=== PATIENT | female | born 1960 | race Caucasian/White ===

== ENCOUNTER → 2023-04-28 13:08 | Outpatient (REF) | payer MEDICARE, OTHER, SELFPAY | LOC: HWWDC 13:08 | PROVIDERS: ATTENDING PHYSICIAN Obstetrics & Gynecology Gynecology; FAMILY PHYSICIAN Internal Medicine | DX: Z12.31 Encounter for screening mammogram for malignant neoplasm of breast (principal) | CPT/HCPCS: 77063; 77067 ==

== ENCOUNTER 2023-06-09 06:31 | Day surgery (SDC) | payer MEDICARE, OTHER, SELFPAY ==
--- NOTE | 2023-05-31 10:49 | CM ---
Patient is scheduled for an elective R TKR on 06/09/23- she is a same day patient. Spoke with patient prior to surgery. Introduced role of Orthopedic Navigator. Patient reports that she lives alone in a two story home. There are four steps to enter
and a flight of steps to the second floor. She currently functions independently. She has a cane, commode, cpap and rolling walker. She has never had VN services. PCP is Kelly Brian.
Discussed orthopedic program and post surgical plans. Reviewed that she will have VN services initially (medicare.gov website and ratings reviewed) and will then start outpatient PT. Patient selects [facility] (face sheet faxed to [facility] to facilitate
confirmation of benefits) for her home care needs but doesn't think she will have transportation for outpatient PT and will need VN services beyond the initial few days.
Patient is in agreement with plan and states that she will be going to her sister's home after surgery.
Patient will complete online education.
Plan: Orthopedic Navigator will remain available to assist with the care of patient and will reassess discharge needs after surgery.
[2023-06-03 08:31] VITALS: BMI 38.0
[2023-06-03 08:56] LABS: Hematocrit 42.4 % (37.0-47.0); Hemoglobin 13.9 g/dL (12.0-16.0); Mean Corp Hgb Conc. 32.8 g/dL (33.0-37.0); Mean Corpuscular Hgb 28.1 pg (27.0-31.0); Mean Corpuscular Volume 85.7 fL (81.0-99.0); Platelet Count 284 10^3/uL (130-400); Red Blood Cell Count 4.95 10^6/uL (4.20-5.40); Red Cell Dist. Width 15.5 % (11.5-14.5); White Blood Cell Count 11.1 10^3/uL (4.8-10.8)
[2023-06-03 09:37] LABS: ALT (SGPT) 14 U/L (0-35); AST (SGOT) 17 U/L (14-36); Albumin 3.9 g/dl (3.5-5.0); Alkaline Phosphatase 98 U/L (38-126); Blood Urea Nitrogen 15 mg/dl (7-17); Calcium 9.1 mg/dl (8.4-10.2); Carbon Dioxide 26 mmol/L (22-30); Chloride 102 mmol/L (98-107); Estimated Creatinine Clearance 94 ml/min; Glucose 158 mg/dl (70-99); Potassium 4.2 mmol/L (3.5-5.1); Sodium 136 mmol/L (135-145); Total Protein 6.5 g/dl (6.3-8.2); eGFR > 60.00
[2023-06-03 13:16] LABS: Glycohemoglobin (HgbA1c) 6.9 % (4.0-5.6)
[2023-06-03 15:31] VITALS: BMI 38.0
[2023-06-09] VITALS (13 sets, daily range): BP systolic 93–131; BP diastolic 55–72; PULSE 62; O2SAT 95
[2023-06-09] MEDS: CELEBREX 200 MG PO (08:08)
[2023-06-09] MEDS: TYLENOL 650 MG PO (08:08)
[2023-06-09] MEDS: NORMOSOL-R 1000 IV (08:08)
[2023-06-09 08:09] LABS: Glucose - Point of Care 103 mg/dl (70-99)
[2023-06-09 10:01] LABS: Glucose - Point of Care 67 mg/dl (70-99)
[2023-06-09 10:19] LABS: Glucose - Point of Care 131 mg/dl (70-99)
--- NOTE | 2023-06-09 10:59 | SUR.PHASEI ---
patient in pacu - awake and alert on arrival, moving feet and sensation to feet, feels ' a little shaky' vss, glucose checked 67 - able to drink - took apple juice PO and glucose rechecked at 1015 131. no pain, good movement of extremities.
Antonio updated on glucose, visits, Dr Gazra visits. -
[2023-06-09] MEDS: ROXICODONE 5 MG PO ×2 (11:43→13:34)
--- NOTE | 2023-06-09 11:54 | CM ---
Patient had planned P TKR today. Met with patient, her sister and [id number] at bedside to review discharge plans. Patient will be going to her sister's home today with services through VN. She will stay with her sister until Wednesday and then
will return home. She will not have transportation for outpatient PT and will need continued VN services.
Patient has her rolling walker here with her.
PT and VN were kept updated as to progress and discharge plans.
[2023-06-09 12:16] LABS: Glucose - Point of Care 134 mg/dl (70-99)
[2023-06-09] MEDS: ANCEF 5 IV (13:04)
== END 2023-06-09 13:52 | disposition home health service (06) ==
LOC: SDS 06:31
PROVIDERS: ATTENDING PHYSICIAN Orthopaedic Surgery; FAMILY PHYSICIAN Internal Medicine; OTHER PHYSICIAN Physician Assistant
DX: M17.11 Unilateral primary osteoarthritis, right knee (principal)
CPT/HCPCS: 27447; 36415; 73560; 80053; 82962; 83036; 85027; 87070; 93005; 97116; 97161; C1713; C1776

== ENCOUNTER → 2023-07-19 15:54 | Outpatient (REF) | payer MEDICARE, OTHER, SELFPAY | LOC: RAD 15:54 | PROVIDERS: ATTENDING PHYSICIAN Internal Medicine | DX: M79.604 Pain in right leg (principal); M79.89 Other specified soft tissue disorders | CPT/HCPCS: 93971 ==

== ENCOUNTER → 2023-08-26 14:25 | Outpatient (REF) | payer MEDICARE, OTHER, SELFPAY | LOC: HWRAD 14:25 | PROVIDERS: ATTENDING PHYSICIAN Internal Medicine | DX: M25.571 Pain in right ankle and joints of right foot (principal) | CPT/HCPCS: 73600 ==

== ENCOUNTER → 2023-09-08 13:46 | Outpatient (REF) | payer MEDICARE, OTHER, SELFPAY | LOC: HWRAD 13:46 | PROVIDERS: ATTENDING PHYSICIAN Nurse Practitioner Adult Health; FAMILY PHYSICIAN Internal Medicine | DX: Z87.891 Personal history of nicotine dependence (principal) | CPT/HCPCS: 71271 ==

== ENCOUNTER → 2023-11-30 07:17 | Outpatient (REF) | payer MEDICARE, OTHER, SELFPAY | LOC: RAD 07:17 | PROVIDERS: ATTENDING PHYSICIAN Nurse Practitioner | DX: R22.42 Localized swelling, mass and lump, left lower limb (principal) | CPT/HCPCS: 93971 ==

== ENCOUNTER → 2023-12-09 14:09 | Outpatient (REF) | payer MEDICARE, OTHER, SELFPAY | LOC: HWRAD 14:09 | PROVIDERS: ATTENDING PHYSICIAN Nurse Practitioner Adult Health; FAMILY PHYSICIAN Internal Medicine | DX: R59.0 Localized enlarged lymph nodes (principal) | CPT/HCPCS: 71260; Q9967 ==

== ENCOUNTER 2023-12-22 05:57 | Day surgery (SDC) | payer MEDICARE, OTHER, SELFPAY ==
[2023-11-29 13:46] VITALS: BMI 35.6
[2023-11-29 14:51] LABS: Hematocrit 42.1 % (37.0-47.0); Hemoglobin 13.7 g/dL (12.0-16.0); Mean Corp Hgb Conc. 32.5 g/dL (33.0-37.0); Mean Corpuscular Volume 85.9 fL (81.0-99.0); Mean Platelet Volume 10.5 fL (7.4-10.4); Platelet Count 342 10^3/uL (130-400); Red Cell Dist. Width 15.4 % (11.5-14.5); White Blood Cell Count 11.6 10^3/uL (4.8-10.8)
[2023-11-29 15:27] LABS: ALT (SGPT) 12 U/L (0-35); AST (SGOT) 20 U/L (14-36); Albumin 4.4 g/dl (3.5-5.0); Alkaline Phosphatase 117 U/L (38-126); Blood Urea Nitrogen 10 mg/dl (7-17); Calcium 9.8 mg/dl (8.4-10.2); Carbon Dioxide 23 mmol/L (22-30); Chloride 103 mmol/L (98-107); Estimated Creatinine Clearance 96 ml/min; Glucose 100 mg/dl (70-99); Potassium 4.9 mmol/L (3.5-5.1); Sodium 142 mmol/L (135-145); eGFR > 60.00
[2023-11-30 09:14] LABS: Glycohemoglobin (HgbA1c) 5.9 % (4.0-5.6)
--- NOTE | 2023-12-08 15:24 | VNURNOTE ---
Patient is scheduled for an elective L TKA on 12/22/[address] Garza - she is a same day patient.
Spoke with patient prior to surgery. Introduced role of VN Liaison.
Patient reports that she lives alone. Post-op, she will be staying at her sister's house in [place].
It is a two story house. Patient plans on staying on the first floor. There is a powder room on first floor. There are 4 APRYL house.
Confirmed she has cane and rolling walker. Instructed her to bring walker day of surgery.
She has had VN services prior after other knee surgery with Dr Garza.
PCP is Dr Brian/ Ashley Hinton RN PEDIATRIC
Discussed orthopedic program and post surgical plans.
Reviewed that she will have VN services initially and will then start outpatient PT. Patient deciding [facility] She confirmed she has a rx for outpt PT.
Patient selects [facility] for home care needs initially.
Patient is in agreement with plan and states sister will help for a few days post-op.
Plan: [facility] then outpt PT
[2023-12-21 09:55] VITALS: BMI 35.6
[2023-12-22] VITALS (13 sets, daily range): BP systolic 87–117; BP diastolic 50–71; BMI 35.6
[2023-12-22] MEDS: CELEBREX 200 MG PO (06:38)
[2023-12-22] MEDS: TYLENOL 650 MG PO (06:38)
[2023-12-22 06:39] LABS: Glucose - Point of Care 133 mg/dl (70-99)
[2023-12-22] MEDS: NORMOSOL-R/PLASMALYTE-A 1000 IV (06:39)
[2023-12-22 08:19] LABS: Glucose - Point of Care 109 mg/dl (70-99)
[2023-12-22] MEDS: ROXICODONE 5 MG PO (11:01)
[2023-12-22] MEDS: ANCEF 5 IV (11:18)
== END 2023-12-22 10:40 | disposition home health service (06) ==
LOC: SDS 05:57
PROVIDERS: ATTENDING PHYSICIAN Orthopaedic Surgery; FAMILY PHYSICIAN Internal Medicine; REFERRING PHYSICIAN Internal Medicine Critical Care Medicine
DX: M17.12 Unilateral primary osteoarthritis, left knee (principal)
CPT/HCPCS: 27447; 36415; 73560; 80053; 82962; 83036; 85027; 87070; 93005; 97162; C1713; C1776

== ENCOUNTER 2024-01-14 13:52 | Outpatient (RCR) | payer MEDICARE, OTHER, SELFPAY | END 2024-01-14 23:59 | disposition home or self-care (01) | LOC: RPT 13:52 | PROVIDERS: ATTENDING PHYSICIAN Orthopaedic Surgery; FAMILY PHYSICIAN Internal Medicine | DX: M17.12 Unilateral primary osteoarthritis, left knee (principal); Z73.6 Limitation of activities due to disability | CPT/HCPCS: 97010; 97110; 97112; 97163; 97530 ==

== ENCOUNTER 2024-01-31 06:10 | Day surgery (SDC) | payer MEDICARE, OTHER, SELFPAY ==
[2024-01-31] VITALS (12 sets, daily range): BP systolic 79–120; BP diastolic 45–77; BMI 38.7
[2024-01-31 12:54] LABS: Glucose - Point of Care 95 mg/dl (70-99)
[2024-01-31 14:44] LABS: Glucose - Point of Care 101 mg/dl (70-99)
== END 2024-01-31 15:45 | disposition home or self-care (01) ==
LOC: SDS 06:10
PROVIDERS: ATTENDING PHYSICIAN Internal Medicine Critical Care Medicine
DX: R59.0 Localized enlarged lymph nodes (principal)
CPT/HCPCS: 31629; 31654; 88173; 88305; 88312; 82962

== ENCOUNTER 2024-02-14 14:02 | Outpatient (RCR) | payer MEDICARE, OTHER, SELFPAY | END 2024-02-14 23:59 | disposition home or self-care (01) | LOC: RPT 14:02 | PROVIDERS: ATTENDING PHYSICIAN Orthopaedic Surgery; FAMILY PHYSICIAN Internal Medicine | DX: Z47.1 Aftercare following joint replacement surgery (principal); Z96.652 Presence of left artificial knee joint; M17.12 Unilateral primary osteoarthritis, left knee | CPT/HCPCS: 97110; 97140; 97530 ==

== ENCOUNTER 2024-03-10 12:55 | Outpatient (RCR) | payer MEDICARE, OTHER, SELFPAY | END 2024-03-13 06:33 | disposition home or self-care (01) | LOC: RPT 12:55 | PROVIDERS: ATTENDING PHYSICIAN Orthopaedic Surgery; FAMILY PHYSICIAN Internal Medicine | DX: Z47.1 Aftercare following joint replacement surgery (principal); M17.12 Unilateral primary osteoarthritis, left knee; Z73.6 Limitation of activities due to disability; M62.81 Muscle weakness (generalized); Z96.652 Presence of left artificial knee joint | CPT/HCPCS: 97110; 97530 ==

== ENCOUNTER → 2024-05-30 13:58 | Outpatient (REF) | payer MEDICARE, OTHER, SELFPAY | LOC: WDC 13:58 | PROVIDERS: ATTENDING PHYSICIAN Obstetrics & Gynecology Gynecology; FAMILY PHYSICIAN Internal Medicine | DX: Z12.39 Encounter for other screening for malignant neoplasm of breast (principal); M85.89 Other specified disorders of bone density and structure, multiple sites | CPT/HCPCS: 77063; 77067; 77080 ==